=== PATIENT | male | born 1955 ===

== ENCOUNTER 2021-08-09 11:40 | Day surgery (SDC) | payer OTHER ==
[~2021-08-09 11:40] MED LIST: CARDURA XL4 MG PO; LOSARTAN-HCTZ1 EAC1 PO; LOTREL 5-10 MG1 CAP PO; ZOCOR20 MG PO
== END 2021-08-09 17:10 | disposition home or self-care (01) ==
LOC: CIR.AMB 11:40
PROVIDERS: ATTEND Colon & Rectal Surgery
DX: K43.2 Incisional hernia without obstruction or gangrene (principal); I10 Essential (primary) hypertension; E78.5 Hyperlipidemia, unspecified; Z86.16 Personal history of COVID-19; G47.33 Obstructive sleep apnea (adult) (pediatric); Z99.89 Dependence on other enabling machines and devices; Z87.891 Personal history of nicotine dependence; F12.90 Cannabis use, unspecified, uncomplicated; N40.0 Benign prostatic hyperplasia without lower urinary tract symptoms; Z20.822 Contact with and (suspected) exposure to COVID-19